=== PATIENT | male | born 1970 | race Caucasian/White ===

== ENCOUNTER 2017-08-05 13:57 | Emergency (ER) | payer OTHER ==
[~2017-08-05] VITALS: Ht 180.3 cm; Wt 99.8 kg
[2017-08-05] MEDS ORDERED: HYDROCHLOROTHIAZIDE (14:03)
[2017-08-05] MEDS ORDERED: LIPITOR (14:03)
[2017-08-05] MEDS ORDERED: LISINOPRIL (14:03)
[2017-08-05] MEDS ORDERED: VITAMIN D (14:03)
[2017-08-05] MEDS ORDERED: ASPI81TA31 PO (14:03)
--- NOTE | 2017-08-05 14:48 | NUR ---
Dr Pena at the bedside for MSE.
[2017-08-05 15:12] VITALS: BP 142/70
== END 2017-08-05 15:13 | disposition home or self-care (01) ==
LOC: ER 13:57
DX: L03.012 Cellulitis of left finger (principal); I10 Essential (primary) hypertension; Z86.73 Personal history of transient ischemic attack (TIA), and cerebral infarction without residual deficits; Z79.82 Long term (current) use of aspirin; Z79.899 Other long term (current) drug therapy
CPT/HCPCS: 99283; A4663